=== PATIENT | female | born 1990 | race Caucasian/White ===

== ENCOUNTER 2016-10-26 16:12 | Emergency (ER) | payer OTHER ==
[~2016-10-26] VITALS: Ht 157.5 cm; Wt 96.2 kg
[~2016-10-26 16:12] MED LIST: BACTRIM DS TAB1 EACH PO; BUPROPION XL150 MG PO; IBUPROFEN800 M1 PO; KEFLEX500 M1 PO; LISINOPRIL20 M1 PO; METFORMIN HCL500 M3 PO
[2016-10-26] MEDS ORDERED: AMOXICILLIN875 M1 PO (17:58)
[2016-10-26] MEDS ORDERED: BACTRIM DS TAB1 EACH PO (17:58)
--- NOTE | 2016-10-26 17:58 | ED SKIN/ALLERGY COMPLAINT ---
History of Present Illness General Chief Complaint: Skin Rash/ Abcess Stated Complaint: RASH UNDER RT BREAST XS 2DAYS Source: patient Exam Limitations: no limitations Vital Signs & Intake/Output Vital Signs & Intake/Output Vital Signs Date Time Temp Pulse Resp B/P Pulse O2 O2 Flow FiO2 Ox Delivery Rate 10/26 1759 97.2 96 18 141/95 97 Room Air 10/26 1622 97.2 96 16 138/88 98 Room Air Allergies Coded Allergies: No Known Allergies (01/16/16) Reconcile Medications Amoxicillin 875 MG TABLET 1 TAB PO BID CELLULITIS Bupropion HCl (Bupropion XL) 150 MG TAB.ER.24H 1 TAB PO QAM DEPRESSION ( Reported) Cephalexin (Keflex) 500 MG CAPSULE 1 CAP PO 4 TIMES/DAY CELLULITIS Ibuprofen 800 MG TABLET 1 TAB PO TID PRN PAIN Lisinopril 20 MG TABLET 1 TAB PO DAILY HEART (Reported) Metformin HCl 500 MG TABLET 1 TAB PO BID DIABETES (Reported) Sulfamethoxazole/Trimethoprim (Bactrim Ds Tablet) 800 MG-160 MG TABLET 1 TAB PO BID CELLULITIS Sulfamethoxazole/Trimethoprim (Bactrim Ds Tablet) 800 MG-160 MG TABLET 1 TAB PO BID CELLULITIS Triage Note: 25 Y/O FEMALE C/O RED, HARD, PAINFUL AREA UNDER R BREAST X 2 DAYS. DENIES DRAINAGE. DENIES FEVERS Triage Nurses Notes Reviewed? yes Onset: Gradual Duration: day(s): (2) Timing: remote history Severity: moderate Severity Numbers: 6 Location: torso Possible Factors: no cause identified : No Patient currently breastfeeds: No HPI: Patient is a 25-year-old female with history of diabetes presenting to the emergency department with chief complaint of redness and pain under the right breast has been going on for the past 2 days. Denies any trauma. History of similar symptoms in the past with an abscess on the left. She reports that her diabetes is not well-controlled and her hemoglobin A1c is 11. Denies any nausea or vomiting fevers or chills chest pain or shortness of breath. Denies taking anything for pain prior to arrival. Pain is throbbing achy in nature. Pain does not radiate. (LIZZIE FONG) Past History Travel History Traveled to [place] past 21 day No Medical History Any Pertinent Medical History? see below for history Neurological: NONE EENT: NONE Cardiovascular: HYPERTENSION Respiratory: NONE Gastrointestinal: NONE Hepatic: NONE Renal: NONE Musculoskeletal: NONE Psychiatric: NONE Endocrine: NIDDM PCOS Surgical History Surgical History: non-contributory, N Psychosocial History What is your primary language Polish Tobacco Use: Current Daily Use Daily Tobacco Use Amount/Type: =< 4 Cigarettes daily Family History Hx Contributory? No (LIZZIE FONG) Review of Systems Review of Systems Constitutional: Reports: no symptoms. Comments Review of systems: See HPI, All other systems negative. Constitutional, no chills fever or weight loss HEENT: No visual changes no sore throat no congestion Cardiovascular: No chest pain ,palpitation , orthopnea or ankle swelling Skin, no jaundice Respiratory: No dyspnea cough sputum or hemoptysis GI: No nausea no vomiting : No dysuria No hematuria Muscle skeletal: no back pain, no neck pain, Neurologic: No numbness no confusion Psych: No stress anxiety or depression,. Heme/endocrine: No bruising no bleeding no polyuria or polydipsia Immunology: No splenectomy or history of AIDS (LIZZIE FONG) Physical Exam Physical Exam General Appearance: well developed/nourished, no apparent distress, alert, awake , comfortable Comments: Well-developed well-nourished person in no acute distress HEENT: Pupils equally round and reactive to light and accommodation. Nose is atraumatic. Neck: Normal inspection Back: Nontender Cardiovascular: Regular rate and rhythms no murmurs rubs or gallops, normal JVP Respiratory: No respiratory distress. Extremity: No edema Neuro: Alert oriented x3 Skin: Area of erythema approximately 6-8 cm noted under the right breast tenderness palpation, indurated, no fluctuance. Nonraised. Psych: Mood and affect is normal, memory and judgment is normal. (LIZZIE FONG) Progress Differential Diagnosis: abscess/cellulitis, allergic reaction, TINEA Plan of Care: Likely cellulitis. No area of fluctuance to incise. Patient will be started on amoxicillin and Bactrim. Angiogram use of warm compresses. She'll return for any worsening symptoms or concerns. She was educated on the potential aspect of worsening cellulitis and the formation of abscess which would need to be drained. (LIZZIE FONG) Departure Departure Time of Disposition: 1754 Disposition: HOME OR SELF CARE Condition: Stable Clinical Impression Primary Impression: Cellulitis Qualifiers: Site of cellulitis: trunk Site of cellulitis of trunk: unspecified site Qualified Code: L03.319 - Cellulitis of trunk, unspecified Referrals: MAURO BAJWA DO (PCP/Family) MARIANELA HASSAN,TENA Chauhan Additional Instructions: Follow-up with your primary care physician as well as endocrinology. He needs to get her diabetes under control. Take antibiotics as prescribed for cellulitis. Apply warm compresses to affected area. Departure Forms: Customer Survey General Discharge Information Prescriptions: Current Visit Scripts Amoxicillin 1 TAB PO BID #20 TAB Sulfamethoxazole/Trimethoprim (Bactrim Ds Tablet) 1 TAB PO BID #14 TAB (LIZZIE FONG) PA/PERFORMANCE REPORTER Co-Sign Statement Statement: ED Attending supervision documentation- [] I saw and evaluated the patient. I have also reviewed all the pertinent lab results and diagnostic results. I agree with the findings and the plan of care as documented in the PA's/PERFORMANCE REPORTER's documentation. x I have reviewed the ED Record and agree with the PA's/PERFORMANCE REPORTER's documentation. [] Additions or exceptions (if any) to the PAs/PERFORMANCE REPORTER's note and plan are summarized below: [] (RENEE HASSAN,ABHILASH)
[2016-10-26 17:59] VITALS: BP 141/95
== END 2016-10-26 18:03 ==
LOC: ERH 16:12
DX: N61.0 Mastitis without abscess (principal)

== ENCOUNTER → 2018-01-03 | Day surgery (SDC) | payer OTHER ==
[~2018-01-03] VITALS: Ht 157.5 cm; Wt 101.6 kg
[~2018-01-03] MED LIST changes: +ADULT LOW DOSE81 MG PO; +ALPRAZOLAM0.5 M4 PO; +AMOXICILLIN875 M1 PO; +CITRANATAL HAR1 EACH PO; +FLUOXETINE HCL20 M2 PO; +HUMALOG KW100 UNIT/1 SC; +HUMULIN 70100 UNIT/2 SC; +HUMULIN 70100 UNIT/2 SQ; +HUMULIN N100 UNIT/2 SC; +HYDROCORTISO28.35 GM EXT; +LABETALOL HCL100 M1 PO; +LEVOTHYROXINE25 MCG PO; +LO-DOSE ASPIRIN81 MG PO; +MINIPRESS1 MG PO; +PERCOCET 5-3251 EACH PO; +PRENATAL TABLE1 EAC2 PO; +SYNTHROID25 MCG PO
--- NOTE | 2018-01-05 08:57 | Operative Report ---
Operative/Inv Procedure Report Surgery Date: 01/02/18 Name of Procedure: #1 excision of epidermoid cyst right medial breast diameter 3 cm, layered intermediate complexity closure 3-1/2 cm #2 incision debridement and drainage of right inframammary hidradenitis #3 incision debridement and drainage left pain is hidradenitis Pre-Operative Diagnosis: Epidermoid cyst chest hidradenitis groin Post-Operative Diagnosis: Epidermoid cyst and hidradenitis right breast and hidradenitis left inferior pannus Estimated Blood Loss: scant Surgeon/Photo Mask Pattern Generator: Saniya HASSAN,Vern De La Torre Anesthesia: general endotracheal tube Operative/Procedure Note Note: Patient was positioned supine we approached the lower abdomen and groin area first the left side was clipped prepped and draped in usual sterile fashion on better exposure you could see that it really wasn't in the groin it was an increase beneath an overhanging pannus on the left this was hidradenitis we infiltrated local anesthetic and made an elliptical incision excising the draining sinus and there was some purulent drainage and it was tracking deep he could get your finger and its we made a counterincision medially also an increase was a little bit of venous oozing and granulation tissue which we curetted out irrigated checked for hemostasis and then packed from both ends with iodoform packing this was covered with fluff gauze and tape total area spans about 8 cm. Next we turned our attention to the chest which was prepped and draped in usual sterile fashion as well medially along the right breast crease was a cluster of skin sinuses with underlying thickening epidermoid cyst area was infiltrated local anesthetic and then an elliptical incision was made in the skin following the crease and a 3 cm mass of tissue including the cysts and the sinuses was excised using healthy fat as the border. The resulting cavity was irrigated checked for hemostasis and closed in layers using interrupted 3-0 Vicryl sutures deep and a running subcuticular 4-0 Nylon suture for the skin itself, then in the inframammary fold was an area of hidradenitis with a draining sinus like the one in the pannus lower down we eventually local anesthetic excise the sinus this was not tracking as far as as the other one was then we opened that up to be debrided curetted it out the granulation tissue checked for hemostasis and also packed it with did open with iodoform packing gauze covered by fluffs and tape. The area of this one was about 4 cm. EBL minimal lap and sponge counts correct wound expectancy clean-contaminated IV fluids crystalloid complications none patient tolerated the procedure well was extubated and returned to recovery room in satisfactory condition.
== END ==
LOC: STS 12-27 01:36
DX: L73.2 Hidradenitis suppurativa (principal); N60.31 Fibrosclerosis of right breast; L72.0 Epidermal cyst; E11.9 Type 2 diabetes mellitus without complications; Z79.4 Long term (current) use of insulin; I10 Essential (primary) hypertension; G47.33 Obstructive sleep apnea (adult) (pediatric)
CPT/HCPCS: 81025; 88305; J0690; J2250